=== PATIENT | female | born 1965 | race Caucasian/White ===

== ENCOUNTER 2024-01-14 18:57 | Emergency (ER) | payer OTHER, SELFPAY ==
[2024-01-14 19:04] VITALS: BP 141/94; PULSE 95; RESP 18; TEMP 35.5; O2SAT 99
--- NOTE | 2024-01-14 19:35 | ED.SKABFB ---
HPI - Skin/Abscess/Foreign Bdy General Chief complaint: Skin/Abscess/Foreign Body Stated complaint: rash/sob Time Seen by Provider: 01/14/24 19:20 Source: patient, RN notes reviewed and old records reviewed Mode of arrival: ambulatory Limitations: no limitations History of Present Illness HPI narrative: 58 year old female who presents to [facility] care with complaints of generalized itchy body rash for the past 1.5 weeks.Patient reports that she was exposed to poison miguel about 10 days ago and she has been applying Calamine lotion to rash thinks maybe she is allergic to ointment rash has gotten worse, complaint: rash Onset (ago): week(s) (1.5 weeks with increase rash with itching) Location: generalized Severity: severe Quality: pruritic Treatments prior to arrival: other (Calamine lotion) Related Data Home Medications Medication Instructions Recorded Confirmed amitriptyline 50 mg tablet 50 mg PO DAILY 01/14/24 01/14/24 ibuprofen 600 mg tablet 600 mg PO DAILY 01/14/24 01/14/24 lisinopril 10 mg tablet 10 mg PO DAILY 01/14/24 01/14/24 Allergies Allergy/AdvReac Type Severity Reaction Status Date / Time No Known Allergies Allergy Verified 01/14/24 19:47 Review of Systems Review of Systems: CONSTITUTIONAL: Denies fever, chills, or sweats. CARDIOVASCULAR: Denies chest pain, palpitations, or edema. RESPIRATORY: Denies cough or dyspnea. SKIN: Reports generalized red pink raised rash over body with sever itching MUSCULOSKELETAL: Denies joint pain or myalgia. NEUROLOGIC: Denies headache, numbness, or weakness. All systems reviewed & are unremarkable except as noted in HPI and below PMFSH Past Medical History Medical History (Updated 01/15/24 @ 20:17 by Annabelle Colvin NP) Hypertension Social History Social History (Updated 01/15/24 @ 20:12 by Annabelle Colvin NP) Smoking status: Smoker, status unknown Alcohol intake: unknown Substance use: unknown Gender identity (if verbalized by the patient): Female Comments At time of signature, agree with nursing past medical, surgical, social and family history. There is no relevant family history pertinent to the presenting complaint Exam Narrative: GENERAL: Well-appearing, well-nourished, and in no acute distress. HEAD: Normocephalic, atraumatic. EYES: PERRLA, conjunctivae clear, and EOMI. ENT: Mucous membranes moist. Oropharynx without edema, erythema or lesions. NECK: Supple. No lymphadenopathy CHEST: Clear to auscultation. No respiratory distress.SAO2 99% on room air, no tachypnea noted HEART: Regular rate and rhythm. SKIN: Warm, dry.? Patches of erythema and edema generalized over body with severe itching NEURO:? Alert and oriented x3. PSYCH: Normal mood and affect Course Course Emergency Course: Patient is aware of diagnosis, understands and agrees to treatment plan.? Anticipatory guidance given.? Patient agrees to follow-up as directed and is aware of reasons to seek care at the emergency department. Portions of this record may have been created with voice recognition software Level of Care: Express Care Visit Vital Signs Vital signs: Vital Signs Temperature 35.5 C L 01/14/24 19:04 Pulse Rate 95 01/14/24 19:04 Respiratory Rate 18 01/14/24 19:04 Blood Pressure 141/94 H 01/14/24 19:04 Pulse Oximetry 99 01/14/24 19:04 Oxygen Delivery Room Air 01/14/24 19:04 Temperature 35.5 C L 01/14/24 19:04 Pulse Rate 95 01/14/24 19:04 Respiratory Rate 18 01/14/24 19:04 Blood Pressure 141/94 H 01/14/24 19:04 Pulse Oximetry 99 01/14/24 19:04 Oxygen Delivery Room Air 01/14/24 19:04 Reviewed MDM - Skin/Abscess/Foreign Bdy MDM Narrative Medical decision making narrative: Does not appear at this time to be erythema multiforme, bullous, SJS, TEN; no evidence at this time to suggest RMSF, endocarditis or Lyme disease; patient looks well, nontoxic and is tolerating oral intake; no neurologi
[2024-01-14] MEDS: methylPREDNISolone ACETATE 80 MG/ML VIAL IM (19:41)
== END 2024-01-14 20:04 | disposition home or self-care (01) ==
PROVIDERS: Emergency Provider Registered Nurse; PCP Internal Medicine
DX: L25.9 Unspecified contact dermatitis, unspecified cause (principal); I10 Essential (primary) hypertension
CPT/HCPCS: 96372; 99213; G0463; J1010